=== PATIENT | male | born 1990 | race Caucasian/White ===

== ENCOUNTER 2021-07-10 16:55 | Emergency (ER) | payer MEDICAID ==
[2021-07-10] MEDS ORDERED: CLONIDINE HYDR0.1 MG PO (18:08)
[2021-07-10] MEDS ORDERED: CYCLOBENZAPRINE10 M1 PO (18:09)
[2021-07-10] MEDS ORDERED: CYPROHEPTADINE H4 M1 PO (18:09)
[2021-07-10] MEDS ORDERED: GABAPENTIN TAB600 MG PO (18:09)
[2021-07-10] MEDS ORDERED: REMERON15 MG PO (18:09)
[2021-07-10] MEDS ORDERED: RISPERIDONE0.5 M2 PO (18:09)
[2021-07-10 19:16] VITALS: BP 127/76
== END 2021-07-10 19:16 | disposition home or self-care (01) ==
LOC: ED 16:55
DX: R05.9 Cough, unspecified (principal)
CPT/HCPCS: J1200; J1885; J2550; J7030

== ENCOUNTER → 2021-08-14 | Outpatient (CLI) | payer MEDICAID ==
[~2021-08-14] MED LIST: CLONIDINE HYDR0.1 MG PO; CYCLOBENZAPRINE10 M1 PO; CYPROHEPTADINE H4 M1 PO; GABAPENTIN TAB600 MG PO; REMERON15 MG PO; RISPERIDONE0.5 M2 PO
== END ==
LOC: RAD 14:17
DX: S92.411A Displaced fracture of proximal phalanx of right great toe, initial encounter for closed fracture (principal)

== ENCOUNTER → 2021-08-15 | Outpatient (CLI) | payer MEDICAID ==
[2021-08-15 08:23] LABS: BASO # 0.02 K/mm3 (0.02-0.10); HEMATOCRIT 48.4 % (42.0-52.0); HEMOGLOBIN 15.8 g/dL (13.5-18.0); LYMPH# 1.92 K/mm3 (1.50-4.00); MEAN CELL VOLUME 88 fl (78-100); MEAN CORPUSCULAR HEMOGLOBIN 29 pg (27-31); MEAN CORPUSCULAR HGB CONC 33 g/dL (33-37); MEAN PLATELET VOLUME 9.3 fl (7.4-10.4); MONO # 0.45 K/mm3 (0.20-0.80); NEU # 3.02 K/mm3 (1.40-6.50); PLATELET COUNT 194 K/mm3 (130-400); RED BLOOD COUNT 5.48 M/mm3 (4.20-5.60); RED CELL DISTRIBUTION WIDTH 12.4 % (11.5-14.5); WHITE BLOOD COUNT 5.4 K/mm3 (4.8-10.8)
[2021-08-15 08:30] LABS: ALBUMIN 4.4 g/dL (3.5-5.0)
[2021-08-15 08:31] LABS: CALCIUM 9.3 mg/dL (8.3-10.5)
[2021-08-15 08:32] LABS: TOTAL PROTEIN 6.8 g/dL (6.4-8.3)
[2021-08-15 08:34] LABS: TOTAL BILIRUBIN 0.8 mg/dL (0.2-1.2)
[2021-08-15 08:39] LABS: MAGNESIUM 2.16 mg/dL (1.60-2.60)
== END ==
LOC: LAB 08:07
PROVIDERS: Internal Medicine
DX: G43.009 Migraine without aura, not intractable, without status migrainosus (principal); F31.9 Bipolar disorder, unspecified; K90.9 Intestinal malabsorption, unspecified

== ENCOUNTER 2021-08-25 19:45 | Emergency (ER) | payer MEDICAID ==
[2021-08-25] MEDS ORDERED: MINIPRESS2 MG PO (20:15)
[2021-08-25] MEDS ORDERED: SERTRALINE50 MG PO (20:15)
[2021-08-25] MEDS ORDERED: INDDOCIN PO (20:15)
[2021-08-25 20:42] LABS: BASO # 0.03 K/mm3 (0.02-0.10); HEMATOCRIT 47.2 % (42.0-52.0); HEMOGLOBIN 15.6 g/dL (13.5-18.0); LYMPH# 1.72 K/mm3 (1.50-4.00); MEAN CELL VOLUME 86 fl (78-100); MEAN CORPUSCULAR HEMOGLOBIN 28 pg (27-31); MEAN CORPUSCULAR HGB CONC 33 g/dL (33-37); MEAN PLATELET VOLUME 9.3 fl (7.4-10.4); NEU # 4.39 K/mm3 (1.40-6.50); PLATELET COUNT 197 K/mm3 (130-400); RED BLOOD COUNT 5.49 M/mm3 (4.20-5.60); RED CELL DISTRIBUTION WIDTH 12.5 % (11.5-14.5); WHITE BLOOD COUNT 6.6 K/mm3 (4.8-10.8)
[2021-08-25 20:50] LABS: ALBUMIN 4.5 g/dL (3.5-5.0); POTASSIUM 3.3 mmol/L (3.5-5.1)
[2021-08-25 20:51] LABS: CALCIUM 9.8 mg/dL (8.3-10.5)
[2021-08-25 20:52] LABS: TOTAL PROTEIN 7.1 g/dL (6.4-8.3)
[2021-08-25 20:54] LABS: TOTAL BILIRUBIN 0.7 mg/dL (0.2-1.2)
[2021-08-25 22:28] VITALS: BP 133/76
== END 2021-08-25 22:30 | disposition home or self-care (01) ==
LOC: ED 19:45
PROVIDERS: Nurse Practitioner Family
DX: J01.90 Acute sinusitis, unspecified (principal); B34.9 Viral infection, unspecified; R53.81 Other malaise; R53.83 Other fatigue; F41.9 Anxiety disorder, unspecified; F31.9 Bipolar disorder, unspecified; F43.10 Post-traumatic stress disorder, unspecified; Z79.899 Other long term (current) drug therapy; Z20.822 Contact with and (suspected) exposure to COVID-19
CPT/HCPCS: J1885; J2405; J7030